=== PATIENT | female | born 1945 | race Caucasian/White ===

== ENCOUNTER 2018-03-17 15:11 | Emergency (ER) | payer MEDICARE, BC ==
[2018-03-17] MEDS ORDERED: Adacel (T-DAP) 0.5 ML SYRINGE ONE (15:50)
--- NOTE | 2018-03-17 16:07 | RAD ---
RIGHT THUMB 3 VIEWS: Date: 03/17/18 HISTORY: Laceration to finger. FINDINGS: There are arthritic changes of the thumb. I do not see any radiopaque foreign bodies or fracture. IMPRESSION: No acute findings. POS: [facility]
== END 2018-03-17 16:30 | disposition home or self-care (01) ==
LOC: SCSER 15:11
DX: S63.601A Unspecified sprain of right thumb, initial encounter (principal); E03.9 Hypothyroidism, unspecified; Z23 Encounter for immunization; Z79.899 Other long term (current) drug therapy; Y29.XXXA Contact with blunt object, undetermined intent, initial encounter
CPT/HCPCS: 90471; 90715